=== PATIENT | female | born 1980 | race Hispanic/Latino ===

== ENCOUNTER 2019-10-26 13:11 | Outpatient (CLI) | payer MEDICARE, MEDICAID, SELFPAY ==
[2019-10-26 13:48] LABS: Blood Urea Nitrogen 16 mg/dL (7-17); Calcium 9.5 mg/dL (8.4-10.2); Carbon Dioxide 25 mmol/L (22-30); Chloride 107 mmol/L (98-107); Estimated Glomerular Filt Rate 56; Glucose 112 mg/dL (65-105); Potassium 3.9 mmol/L (3.4-5.0); Sodium 143 mmol/L (137-145)
[2019-10-26 14:24] LABS: Free T4 Free Thyroxine 0.97 ng/mL (0.78-2.19); Vitamin D 25 Hydroxy 29.9 ng/mL
[2019-11-01 05:08] LABS: Osmolality, Urine 666 mOsm/kg (50-1200)
== END 2019-10-26 13:12 | disposition home or self-care (01) ==
LOC: ANHLAB 13:18
PROVIDERS: PCP Internal Medicine; Visit Provider Internal Medicine Endocrinology, Diabetes & Metabolism
DX: E11.65 Type 2 diabetes mellitus with hyperglycemia (principal); E23.0 Hypopituitarism; R79.89 Other specified abnormal findings of blood chemistry
CPT/HCPCS: 36415; 80048; 82306; 83935; 84439